=== PATIENT | male | born 1985 | race Caucasian/White ===

== ENCOUNTER 2017-03-01 03:12 | Emergency (ER) | payer OTHER ==
[~2017-03-01 03:12] MED LIST: ACETAMINOPHEN120 ML PO; ADVIL200 M3 PO; AMBIEN10 M1 PO; AMBIEN10 MG PO; BABY ASPIRIN81 MG PO; CITRACAL + D C1 EACH PO; FLEXERIL 10MG PO; FLEXERIL10 MG PO; LEXAPRO10 M2 PO; LISINOPRIL-HCTZ1 TAB PO; MOTRIN800 MG PO; MULTI VITAMIN1 EAC1 PO; MULTI-VITAMIN1 EAC1 PO; NO HOME MEDICATION XX; NO HOME MEDS; NO MEDS; NORCO 10/325 TA1 TAB PO; NORCO 5-325 TA1 EACH PO; NORCO 5/325 TAB1 TAB PO; NORCO 7.5/325 T1 TAB PO; VITAMIN B12
[2017-03-01] MEDS ORDERED: CYCLOBENZAPRINE5 M1 PO (03:21)
[2017-03-01] MEDS ORDERED: ASPIRIN81 M1 PO (03:21)
[2017-03-01] MEDS ORDERED: OXYCODONE H5 MG/5 M2 PO (03:21)
[2017-03-01] MEDS ORDERED: PROMETHAZINE HC25 M3 PO (03:21)
[2017-03-01 04:06] LABS: BASO % 0.2 % (0-2); EOS % 0.5 % (0-7); HCT-HEMATOCRIT 39.4 % (36.0-53.5); HGB-HEMOGLOBIN 14.1 gm/dl (13.5-17.0); IMMATURE GRANULOCYTES ABSOLUTE 0.01 tho/cmm (0-0.03); IMMATURE GRANULOCYTES PERCENT 0.2 % (0-0.3); LYMPH % 13.4 % (20-45); LYMPH ABSOLUTE COUNT 0.8 tho/cmm (0.8-4.5); MCH (MEAN CORPUSCULAR HGB) 31.4 pg (28.0-32.0); MCHC MEAN CORPUSCULAR HGB CONC 35.8 % (32.0-36.0); MCV (MEAN CELL VOLUME) 87.8 fl (82.0-96.0); MEAN PLATELET VOLUME 10.6 cmc (9.4-12.4); MONO % 6.3 % (0-12); MONOCYTE ABSOLUTE COUNT 0.4 tho/cmm (0.0-1.2); NEUTROPHIL ABSOLUTE COUNT 4.6 tho/cmm (1.6-8.0); NEUTROPHIL-AUTOMATED 4.6 tho/cmm (1.6-8.0); NEUTROPHILS % 79.4 % (40-80); PLATELET COUNT 156 tho/cmm (150-450); RED BLOOD COUNT 4.49 mil/cmm (4.40-5.70); RED CELL DISTRIBUTION WIDTH 12.3 % (12.4-16.4); WHITE BLOOD COUNT 5.8 tho/cmm (4.0-10.0)
[2017-03-01 04:24] LABS: ALB/GLOB RATIO 0.8 (0.8-2.0); ALBUMIN 3.5 g/dl (3.5-5.0); ALKALINE PHOSPHATASE 86 U/L (33-138); ANION GAP 14 mmol/L (0-20); AST/SGOT 34 U/L (10-40); BILIRUBIN,TOTAL 0.4 mg/dl (0.0-1.5); BLOOD UREA NITROGEN 14 mg/dl (6-24); CALCIUM 8.7 mg/dl (8.5-10.5); CARBON DIOXIDE-VENOUS 24 mmol/L (22-32); CHLORIDE 108 mmol/l (96-110); CREATININE 0.78 mg/dl (0.60-1.30); GLUCOSE 143 mg/dL (70-110); POTASSIUM 3.5 mmol/L (3.7-5.1); SODIUM 142 mmol/L (135-145); eGFR VALUE FOR BLACK >90 mL/Min
[2017-03-01 04:26] LABS: ALT/SGPT 64 U/L (12-78)
[2017-03-01 04:29] LABS: ACETAMINOPHEN LEVEL <2.1 ug/ml (10-30); SALICYLATE <2.8 mg/dl (2.8-20)
== END 2017-03-01 07:05 ==
LOC: EDMED 03:12
PROVIDERS: Emergency Medicine
DX: T40.2X1A Poisoning by other opioids, accidental (unintentional), initial encounter (principal); R11.2 Nausea with vomiting, unspecified; M79.672 Pain in left foot; R22.42 Localized swelling, mass and lump, left lower limb; I10 Essential (primary) hypertension; G47.30 Sleep apnea, unspecified; E66.9 Obesity, unspecified; Z90.49 Acquired absence of other specified parts of digestive tract; Z98.890 Other specified postprocedural states; Z79.82 Long term (current) use of aspirin; Z79.899 Other long term (current) drug therapy
CPT/HCPCS: G0480; J1885; J2310; J2405; J7030